=== PATIENT | female | born 1980 | race Caucasian/White ===

== ENCOUNTER 2018-10-18 12:04 | Emergency (ER) | payer MEDICAID, OTHER ==
[~2018-10-18] VITALS: Ht 165.1 cm; Wt 76.5 kg
[2018-10-18 12:08] VITALS: BP 184/102; PULSE 78; RESP 16; Ht 165.1 cm; Wt 76.5 kg
[2018-10-18] MEDS ORDERED: morphine 2 MG INJ IV STA (13:06)
[2018-10-18] MEDS ORDERED: ONDANSETRON 4 MG INJ IV STA (13:06)
[2018-10-18] MEDS ORDERED: KETOROLAC 15 MG INJ IV STA (13:06)
--- NOTE | 2018-10-18 13:13 | ERD ---
ER Documentation Chief Complaint Chief Complaint SANTAMARIA WITH VOMITING X 2, HX OF MIGRAINES HPI 38-year-old female, with history of migraines and hypertension, currently on metoprolol and losartan, presents to the emergency department, complaining of 2 days of migraines for which the Imitrex has not been working. The pain is tight, constant, 6/10, associated with nausea. The patient denies blurred vision, no distal weakness, numbness or tingling, no fever or chills. ROS All systems reviewed and are negative except as per history of present illness. Medications Home Meds Active Scripts Hydrocodone/Acetaminophen ([place] 5-325 Tablet) 1 Each Tablet, 1 TAB PO Q6H PRN for PAIN, #7 TAB Prov:SALVADOR ALSTON MD 10/18/18 Allergies Allergies: Coded Allergies: No Known Allergies (Verified Allergy, Unknown, 10/18/18) PMhx/Soc History of migraines and hypertension. FmHx Family History: No diabetes, No coronary disease Physical Exam Vitals Vital Signs Date Temp Pulse Resp B/P (MAP) Pulse Ox O2 O2 Flow FiO2 Time Delivery Rate 10/18/18 98.0 78 16 184/102 99 12:08 (129) Physical Exam Const: No acute distress Head: Atraumatic Eyes: Normal Conjunctiva ENT: Normal External Ears, Nose and Mouth. Neck: Full range of motion. No meningismus. Resp: Clear to auscultation bilaterally Cardio: Regular rate and rhythm, no murmurs Abd: Soft, non tender, non distended. Normal bowel sounds Skin: No petechiae or rashes Back: No midline or flank tenderness Ext: No cyanosis, or edema Neur: Awake and alert Psych: Normal Mood and Affect Results 24 hrs Laboratory Tests Test 10/18/18 13:22 Bedside Urine pH (LAB) 8.5 Bedside Urine Protein (LAB) 3+ Bedside Urine Glucose (UA) Negative Bedside Urine Ketones (LAB) 4+ Bedside Urine Blood Trace-intact Bedside Urine Nitrite (LAB) Negative Bedside Urine Leukocyte Esterase (L Negative POC Beta HCG, Qualitative NEGATIVE Current Medications Medications Dose Sig/Viet Start Time Status Last (Trade) Ordered Route PRN Stop Time Admin Dose Reason Admin Sodium 500 ml @ Q1H ONCE 10/18/18 DC 10/18/18 Chloride 500 mls/hr IV 13:30 13:16 10/18/18 14:29 Morphine 2 mg ONCE STAT 10/18/18 DC 10/18/18 Sulfate IV 13:06 13:15 (morphine) 10/18/18 13:12 Ketorolac 15 mg ONCE STAT 10/18/18 DC 10/18/18 Tromethamine IV 13:06 13:33 (Toradol) 10/18/18 13:12 Ondansetron 4 mg ONCE STAT 10/18/18 DC 10/18/18 HCl (Zofran IV 13:06 13:15 Inj) 10/18/18 13:12 650 mg ONCE ONCE 10/18/18 DC 10/18/18 Acetaminophen PO 14:30 14:34 (Tylenol 10/18/18 14:31 Tab) Procedures/MDM Vital signs stable, Physical exam unremarkable, neurovascular exam intact. Differential diagnosis include but not limited to: Classical migraine, sinusitis, visual corrective problems, side effects of medications, dehydration, electrolyte imbalance, endocrine/autoimmune medical condition, stress, anxiety, tension headache. Low suspicion for meningitis, [employer] tumor, cerebrovascular event. Physical examination and clinical presentation consistent most likely with tension headache. During the ED course the patient remained stable, no new complaints. The patient received treatment with IV fluids and IV medications, presenting overall improvement of the symptoms. Results and clinical impression discussed with patient who agrees with man agement. The patient is stable to be treated outpatient and will be discharged home, some side effects of prescribed medications (headache, rash, nausea, vomiting, diarrhea, drowsiness, habituation, bleeding, hypertension, interactions with other medications) were reviewed. Follow up with the primary care provider in the next 48h has been recommended. If symptoms persist, worsen or new symptoms develop, then patient should return to the ED immediately. Instructions explained and given directly by me to the patient with acknowledgment and demonstrated understanding. Disclaimer: Inadvertent spelling and grammatical errors are likely due to EHR/dictation software use and do not reflect on the overall quality of patient care. Also, please note that the electronic time recorded on this note does not necessarily reflect the actual time of the patient encounter. Departure Diagnosis: Primary Impression: Migraine headache Condition: Stable Additional Instructions: Thank you very much for allowing us to participate in your care. Your health and safety is our top priority at [facility]. The evaluation in the emergency department has been done to rule out an acute emergency. Chronic, tlb-aeim-ybaycjskgte conditions may have not been evaluated; therefore, you need to follow up with a primary care provider in the next 48h. If symptoms persist, worsen or new symptoms develop, then patient should return to the ED immediately. Call your primary care doctor TOMORROW for an appointment during the next 2-4 days and bring all the information provided. Have prescriptions filled and follow precisely the directions on the label. If the symptoms get worse and your provider is unavailable, return to the Emergency Department immediately. SALVADOR ALSTON MD Oct 18, 2018 13:13
[2018-10-18] MEDS ORDERED: SOD CHLORIDE 0.9% 500 ML IV ONE (13:30)
[2018-10-18] MEDS ORDERED: ACETAMINOPHEN 325 MG TAB PO ONE (14:30)
[2018-10-18] MEDS ORDERED: HYDR-4011 PO (14:44)
== END 2018-10-18 14:54 | disposition home or self-care (01) ==
LOC: FTE 12:04
DX: G43.909 Migraine, unspecified, not intractable, without status migrainosus (principal); R40.2122 Coma scale, eyes open, to pain, at arrival to emergency department; R40.2252 Coma scale, best verbal response, oriented, at arrival to emergency department; R40.2362 Coma scale, best motor response, obeys commands, at arrival to emergency department
CPT/HCPCS: 81003; 81025; 96361; 96374; 96375; J1885; J2270; J2405; J7040; Z7502; Z7610